=== PATIENT | female | born 1985 | race Caucasian/White ===

== ENCOUNTER 2016-07-08 11:57 | Emergency (ER) | payer MEDICAID ==
[~2016-07-08] VITALS: Ht 162.6 cm; Wt 61.5 kg
[~2016-07-08 11:57] MED LIST: D-ME473S2 PO; DOCU-144 PO; FLUC150T41 PO; IBUP-1542 PO; NITR-58 PO; PHEN-538 PO; POLY17PO6 PO
[2016-07-08 12:02] VITALS: Ht 162.6 cm; Wt 61.5 kg
[2016-07-08 14:32] LABS: URINE BLOOD (Dip) POC Negative (NEGATIVE)
[2016-07-08 14:55] LABS: BASOPHILS % 0.3 % (0.0-2.0); EOSINOPHILS # 0.1 10^3/ul (0.0-0.5); EOSINOPHILS % 1.6 % (0.0-7.0); HEMATOCRIT 36.5 % (37.0-47.0); HEMOGLOBIN 12.1 g/dl (12.0-16.0); LYMPHOCYTES # 2.8 10^3/ul (0.8-2.9); LYMPHOCYTES % 37.6 % (15.0-51.0); MEAN CORPUSCULAR HEMOGLOBIN 26.7 pg (29.0-33.0); MEAN CORPUSCULAR HGB CONC 33.1 g/dl (32.0-37.0); MEAN CORPUSCULAR VOLUME 80.5 fl (82.0-101.0); MEAN PLATELET VOLUME 7.7 fl (7.4-10.4); MONOCYTE # 0.7 10^3/ul (0.3-0.9); NEUTROPHIL # 3.8 10^3/ul (1.6-7.5); NEUTROPHILS % 51.5 % (39.0-77.0); PLATELET COUNT 320 10^3/UL (140-440); RED BLOOD COUNT 4.54 10^6/ul (4.20-5.40); RED CELL DISTRIBUTION WIDTH 13.4 % (11.5-14.5); UNCORRECTED WBC 7.4 10^3/ul (4.8-10.8); WHITE BLOOD COUNT 7.4 10^3/ul (4.8-10.8)
[2016-07-08 15:00] LABS: CONDITION 1; LH ANALYZER COMMENTS 1
[2016-07-08 15:07] LABS: ALBUMIN 4.6 g/dl (3.3-4.9); POTASSIUM 4.1 mmol/L (3.5-5.1)
[2016-07-08 15:09] LABS: CREATININE 0.81 mg/dl (0.44-1.00)
[2016-07-08 15:10] LABS: ALBUMIN/GLOBULIN RATIO 1.27; CALCIUM 9.5 mg/dl (8.4-10.2); TOTAL PROTEIN 8.2 g/dl (6.1-8.1)
--- NOTE | 2016-07-08 15:56 | ERD ---
ER Documentation Chief Complaint Date/Time DATE: 07/08/16 TIME: 15:50 Chief Complaint LOWER ABDOMINAL PAIN RADIATES TO THE BACK ; FEELS BLOATED; DIARRHEA HPI This is a 31-year-old female who presents emergency department for lower back pain that radiates to pelvis for the past 3 months. No dysuria or hematuria. Denies abdominal pain. Patient describes pain as burining and aching No aggravating or relieving factors. Pain is intermittent Patient denies nausea, vomiting or diarrhea. No constipation. No fevers or chills. Patient states she feels "bloated." Last menstrual period approximately 1 year ago patient states she has.an implantable control device and therefore does not have a menstrual period. ROS All systems reviewed and are negative except as per history of present illness. Medications Home Meds Active Scripts Ibuprofen* (Motrin*) 600 Mg Tab, 600 MG PO Q6, #15 TAB Prov:NURIS GIL NP 07/08/16 Phenazopyridine Hcl* (Pyridium*) 200 Mg Tab, 200 MG PO TID Y for DYSURIA, #6 TAB Prov:LUANNE VIDAL NP 09/16/15 Nitrofurantoin Monohyd Macrocr* (Macrobid*) 100 Mg Capsr, 100 MG PO BID for 7 Days, CAP Prov:LUANNE VIDAL NP 09/16/15 Polyethylene Glycol* (Miralax*) 17 Gm Powd.pack, 17 GM PO DAILY, #7 Prov:LUANNE VIDAL NP 09/16/15 Docusate Sodium* (Colace*) 100 Mg Capsule, 100 MG PO BID, #60 CAP Prov:LUANNE VIDAL NP 09/16/15 Dextromethorphan Hb-Promethazine Hcl* (Promethazine DM* Syrup) 473 Ml Syrup, 5 ML PO Q6 Y for COUGH for 5 Days, ML Prov:NAOMIE WALDRON MD 07/12/15 Ibuprofen* (Motrin*) 600 Mg Tab, 600 MG PO Q6, #14 TAB Prov:NAOMIE WALDRON MD 07/12/15 Fluconazole* (Fluconazole*) 150 Mg Tablet, 150 MG PO ONCE for 1 Day, TAB Prov:NAOMIE HALL PA-C 03/22/15 Reported Medications [none] Unknown Strength No Conflict Check 09/15/15 Allergies Allergies: Coded Allergies: No Known Allergy (Verified , 07/08/16) PMhx/Soc Medical and Surgical Hx: pt denies Medical Hx, pt denies Surgical Hx History of Surgery: No Anesthesia Reaction: No Hx Neurological Disorder: No Hx Respiratory Disorders: No Hx Cardiac Disorders: No Hx Psychiatric Problems: No Hx Miscellaneous Medical Probl: No Hx Alcohol Use: No Hx Substance Use: No Hx Tobacco Use: No Smoking Status: Unknown if ever smoked Physical Exam Vitals Vital Signs Date Time Temp Pulse Resp B/P Pulse Ox O2 Delivery O2 Flow Rate FiO2 07/08/16 17:46 78 20 116/78 98 Room Air 07/08/16 12:02 98.4 69 19 110/59 98 Physical Exam Const: Alert, no acute distress Head: Atraumatic Eyes: Normal Conjunctiva ENT: Normal External Ears, Nose and Mouth. Neck: Full range of motion..~ No meningismus. Resp: Clear to auscultation bilaterally Cardio: Regular rate and rhythm, no murmurs Abd: Soft, non tender, non distended. Normal bowel sounds Skin: No petechiae or rashes Back: No midline or flank tenderness Ext: No cyanosis, or edema Neur: Awake and alert Psych: Normal Mood and Affect Result Diagram: 07/08/16 1422 07/08/16 1355 Results 24 hrs Laboratory Tests Test 07/08/16 13:55 07/08/16 14:22 07/08/16 14:32 Alanine Aminotransferase (ALT/SGPT) 28IU/L Albumin 4.6g/dl Albumin/Globulin Ratio 1.27 Alkaline Phosphatase 58IU/L Anion Gap 20 Aspartate Amino Transf (AST/SGOT) 28IU/L Blood Urea Nitrogen 13mg/dl Calcium Level 9.5mg/dl Carbon Dioxide Level 26mmol/L Chloride Level 103mmol/L Creatinine 0.81mg/dl Direct Bilirubin 0.00mg/dl Globulin 3.60g/dl Glucose Level 81mg/dl Indirect Bilirubin 0.0mg/dl Lipase 259U/L Potassium Level 4.1mmol/L Sodium Level 145mmol/L Total Bilirubin 0.0mg/dl Total Protein 8.2g/dl Basophils # 0.010^3/ul Basophils % 0.3% Blood Morphology Comment Eosinophils # 0.110^3/ul Eosinophils % 1.6% Hematocrit 36.5% Hemoglobin 12.1g/dl Lymphocytes # 2.810^3/ul Lymphocytes % 37.6% Mean Corpuscular Hemoglobin 26.7pg Mean Corpuscular Hemoglobin Concent 33.1g/dl Mean Corpuscular Volume 80.5fl Mean Platelet Volume 7.7fl Monocytes # 0.710^3/ul Monocytes % 9.0% Neutrophils # 3.810^3/ul Neutrophils % 51.5% Nucleated Red Blood Cells # 0.010^3/ul Nucleated Red Blood Cells % 0.0/100WBC Platelet Count 94954^3/UL Red Blood Count 4.5410^6/ul Red Cell Distribution Width 13.4% White Blood Count 7.410^3/ul Bedside Urine Blood Negative Bedside Urine Glucose (UA) Negative Bedside Urine Ketones (LAB) Negative Bedside Urine Leukocyte Esterase (L Negative Bedside Urine Nitrite (LAB) Negative Bedside Urine Protein (LAB) Negative Bedside Urine pH (LAB) 6.5 Procedures/MDM ED COURSE: The patient was stable throughout ED course. I kept the patient and/or family informed of laboratory and diagnostic imaging results throughout the ED course. Laboratory CBC no significant infection or anemia CMP no significant electrolyte imbalance Lipase 259 Urine dip negative Urine negative Imaging US pelvis Patient: KATHERIN CHOUDHURY : 1985 Age: 31 Sex: F MR #: [id number] DOS: 07/08/16 1411 Ordering MD: UNRIS GIL NP Location: [facility] Room/Bed: PROCEDURE: US Pelvis CLINICAL INDICATION: Pelvic pain. TECHNIQUE: Sonographic evaluation of the pelvis was performed utilizing both transabdominal and transvaginal technique. Curved array transabdominal transducer technique as well as a high frequency endovaginal probe was utilized. Images were reviewed on the high-resolution PACS workstation. COMPARISON: CT dated 09/16/2015. FINDINGS: The uterus measures 8.25 cm x 4.16 cm x 4.99 cm in dimension. The uterus is anteverted in normal position. The endometrium measures 0.45 cm in thickness. The right ovary measures 2.4 x 2.0 x 2.6 cm. The left ovary is not identified. There is flow demonstrated within the right ovary. There are no adnexal masses. There is no significant free fluid within the pelvis. IMPRESSION: 1. Unremarkable ultrasound of the pelvis. US kidneys Patient: KATHERIN CHOUDHURY : 1985 Age: 31 Sex: F [id number] DOS: 07/08/16 1411 Ordering MD: NURIS GIL NP Location: [facility] Room/Bed: PROCEDURE: US renal. CLINICAL INDICATION: Lower back pain. TECHNIQUE: Multiple sonographic images of the retroperitoneum were obtained. Evaluation of the kidneys and bladder was performed using a curved array transducer. The images were reviewed on a PACS workstation. COMPARISON: None Available. FINDINGS: The right kidney measures 9.2 cm in length. The left kidney measures 9.6 cm in length. Both kidneys demonstrate normal echogenicity. There is no hydronephrosis , nephrolithiasis, or renal mass. The bladder is decompressed and unremarkable IMPRESSION: 1. Unremarkable renal ultrasound. MDM: 31 year old female presents to ER with lower back pain that radiates to pelvis x 3months. Pain is intermittent and patient describes pain as burning. Also reports a "bloated" sensation. Denies dysuria, hematuria. No vaginal bleeding or vaginal discharge. Labs are unremarkable without signs of significant infection, anemia or electrolyte imbalance. Urine is negative for infection. Urine negative for infection. Pelvic US reviewed by radiologist as unremarkable. Renal US reviewed by radiologist as unremarkable. Low suspicion for ruptured ovarian cyst, PID, UTI, pyelonephritis, nephrolithiasis or tubo-ovarian abscess. Patient is appropriate for outpatient management and will be discharged with prescription for ibuprofen Instructed patient to follow up with PCP and OBGYN in the next 2-3 days for reassessment and additional management. Return to ED for any new or worsening symptoms. Patient verbalizes understanding. All questions answered at discharge. Departure Diagnosis: Primary Impression: Pelvic pain Condition: Stable NURIS GIL NP Jul 08, 2016 15:56
--- NOTE | 2016-07-08 16:01 | RADRPT ---
PROCEDURE: US Pelvis CLINICAL INDICATION: Pelvic pain. TECHNIQUE: Sonographic evaluation of the pelvis was performed utilizing both transabdominal and tr ansvaginal technique. Curved array transabdominal transducer technique as well as a high frequency endovaginal probe was utilized. Images were reviewed on the high-resolution PACS workstation. COMPARISON: CT dated 09/16/2015. FINDINGS: The uterus measures 8.25 cm x 4.16 cm x 4.99 cm in dimension. The uterus is anteverted in normal position. The endometrium measures 0.45 cm in thickness. The right ovary measures 2.4 x 2.0 x 2.6 cm. The left ovary is not identified. There is flow demon strated within the right ovary. There are no adnexal masses. There is no significant free fluid wi thin the pelvis. IMPRESSION: 1. Unremarkable ultrasound of the pelvis. RPTAT: HLBP .Fabio Isbell MD, Date Time Electronically viewed and signed by .Fabio Isbell MD, MD on 07/08/2016 16:00 .P/
--- NOTE | 2016-07-08 17:19 | RADRPT ---
PROCEDURE: US renal. CLINICAL INDICATION: Lower back pain. TECHNIQUE: Multiple sonographic images of the retroperitoneum were obtained. Evaluation of the ki dneys and bladder was performed using a curved array transducer. The images were reviewed on a PACS workstation. COMPARISON: None Available. FINDINGS: The right kidney measures 9.2 cm in length. The left kidney measures 9.6 cm in length. Both kidneys demonstrate normal echogenicity. There is no hydronephrosis, nephrolithiasis, or renal mass. The bl adder is decompressed and unremarkable IMPRESSION: 1. Unremarkable renal ultrasound. RPTAT: HLBP .Fabio Isbell MD, Date Time Electronically viewed and signed by .Fabio Isbell MD, MD on 07/08/2016 17:18 .P/
[2016-07-08] MEDS ORDERED: IBUP-1542 PO (17:28)
[2016-07-08 17:46] VITALS: BP 116/78; PULSE 78; RESP 20
== END 2016-07-08 17:47 | disposition home or self-care (01) ==
LOC: FTE 11:57
DX: R10.2 Pelvic and perineal pain (principal)
CPT/HCPCS: 76775; 76830; 76856; 80053; 81003; 83690; 85025; Z7502

== ENCOUNTER 2017-07-20 15:24 | Emergency (ER) | END 2017-07-20 16:35 | disposition home or self-care (01) ==